=== PATIENT | male | born 1955 | race Caucasian/White ===

== ENCOUNTER 2016-04-21 16:04 | Inpatient (IN) | payer MEDICAID ==
[~2016-04-21] VITALS: Ht 182.9 cm; Wt 114.8 kg
[~2016-04-21 16:04] MED LIST: ASPI-556 PO; ATOR20TA86 PO; CITA10TA68 PO; FOLI1 PO; GABA-529 PO; METO25 PO; TRAZ-144 PO
[2016-04-21] MEDS ORDERED: ZOLPIDEM TARTRATE 10 MG TABLET PO PRN (19:00)
[2016-04-21] MEDS ORDERED: LORazepam 2 MG TABLET PO PRN (19:00)
[2016-04-21] MEDS ORDERED: HALOPERIDOL 5 MG TABLET PO PRN (19:00)
[2016-04-21] MEDS ORDERED: PNEUMOCOCCAL VACCINE POLYVALENT 0.5 ML VIAL [PPSV23] IM ONE (19:15)
[2016-04-21] MEDS ORDERED: TRAZ-147 PO (19:31)
[2016-04-21] MEDS ORDERED: CITA20TA9 PO (19:31)
[2016-04-21] MEDS: TraZODone HCL 100 MG TABLET PO SCH (21:20)
[2016-04-21 21:24] VITALS: BP 134/82
[2016-04-22 00:11] VITALS: BP 114/68
[2016-04-22] MEDS: TraMADol HCL 50 MG TABLET PO PRN ×2 (08:37→16:42)
[2016-04-22] MEDS: CITALOPRAM HYDROBROMIDE 20 MG TABLET PO SCH (08:37)
[2016-04-22 09:01] VITALS: BP 123/61
[2016-04-22] MEDS: CEPHALEXIN MONOHYDRATE 500 MG CAPSULE PO SCH ×3 (12:16→21:06)
[2016-04-22] MEDS: INDOMETHACIN 50 MG CAPSULE PO PRN (12:18)
[2016-04-22] MEDS ORDERED: PNEUMOCOCCAL VACCINE POLYVALENT 0.5 ML VIAL [PPSV23] IM ONE (12:45)
[2016-04-22 16:41] VITALS: BP 136/92
[2016-04-22] MEDS: METOPROLOL TARTRATE 25 MG TABLET PO SCH (16:42)
[2016-04-22 17:41] VITALS: BP 128/81
[2016-04-22] MEDS: TraZODone HCL 100 MG TABLET PO SCH (21:06)
[2016-04-23] VITALS (9 sets, daily range): BP systolic 120–167; BP diastolic 71–110
[2016-04-23] MEDS: TraMADol HCL 50 MG TABLET PO PRN ×3 (05:19→19:20)
[2016-04-23 06:57] LABS: BASOPHILS % (AUTO) 0.5 % (0.0-2.0); EOSINOPHILS % (AUTO) 2.5 % (1.0-6.0); HEMATOCRIT 40.6 % (41-53); HEMOGLOBIN 13.6 g/dL (13.5-17.5); LYMPHOCYTES # (AUTO) 1.4 K/uL (1.0-4.8); LYMPHOCYTES % (AUTO) 25.4 % (22.0-44.0); MEAN CORPUSCULAR HEMOGLOBIN 33.9 pg (26.0-34.0); MEAN CORPUSCULAR HGB CONC 33.5 G/dL (31.0-37.0); MEAN CORPUSCULAR VOLUME 101 fL (80-100); MONOCYTES # (AUTO) 0.8 K/uL (0.1-1.0); MONOCYTES % (AUTO) 14.5 % (2.0-9.0); NEUTROPHILS # (AUTO) 3.1 K/uL (1.8-7.7); NEUTROPHILS % (AUTO) 57.1 % (40.0-70.0); PLATELET COUNT (AUTO) 194 K/uL (150-450); RED BLOOD CELL COUNT(AUTO) 4.02 MIL/uL (4.50-5.90); WHITE BLOOD COUNT (AUTO) 5.4 K/uL (4.5-11.0)
[2016-04-23 07:26] LABS: ALANINE AMINOTRANSFERASE 41 U/L (12-78); ALBUMIN 3.7 g/dL (3.4-5.0); ANION GAP 10 mmol/L (8-16); ASPARTATE AMINOTRANSFERASE 29 U/L (15-37); BILIRUBIN,TOTAL 0.6 mg/dL (0.1-1.0); CALCIUM, TOTAL 8.8 mg/dL (8.8-10.5); CARBON DIOXIDE 29 mmol/L (22-29); CHLORIDE 101 mmol/L (98-107); GLOMERULAR FILTR. RATE CALC > 60 mL/min (>60); POTASSIUM 4.1 mmol/L (3.5-5.1); SODIUM SERUM 140 mmol/L (136-145); TOTAL PROTEIN, SERUM 8.3 g/dL (6.4-8.2); UREA NITROGEN, BLOOD 15 mg/dL (7-18)
[2016-04-23 07:35] LABS: URIC ACID 7.2 mg/dL (2.6-7.2)
[2016-04-23] MEDS: CEPHALEXIN MONOHYDRATE 500 MG CAPSULE PO SCH ×4 (08:27→20:16)
[2016-04-23] MEDS: ASPIRIN 81 MG EC TABLET PO SCH (08:28)
[2016-04-23] MEDS: CITALOPRAM HYDROBROMIDE 20 MG TABLET PO SCH (08:28)
[2016-04-23] MEDS: PANTOPRAZOLE SODIUM 40 MG DR TABLET PO SCH (08:29)
[2016-04-23] MEDS: METOPROLOL TARTRATE 25 MG TABLET PO SCH ×2 (08:29→16:05)
[2016-04-23] MEDS: INDOMETHACIN 50 MG CAPSULE PO PRN ×2 (08:34→16:05)
[2016-04-23 09:53] LABS: HEMOGLOBIN A1C 5.4 % (4.5-6.2)
[2016-04-23 10:46] LABS: RBC MORPHOLOGY COMMENT ABNORMAL RBC MORPH
[2016-04-23] MEDS: TraZODone HCL 100 MG TABLET PO SCH (20:16)
[2016-04-24 06:10] VITALS: BP 122/71
[2016-04-24] MEDS: TraMADol HCL 50 MG TABLET PO PRN ×3 (06:10→18:41)
[2016-04-24] MEDS: CEPHALEXIN MONOHYDRATE 500 MG CAPSULE PO SCH ×4 (08:05→20:18)
[2016-04-24] MEDS: PANTOPRAZOLE SODIUM 40 MG DR TABLET PO SCH (08:06)
[2016-04-24] MEDS: ASPIRIN 81 MG EC TABLET PO SCH (08:06)
[2016-04-24] MEDS: CITALOPRAM HYDROBROMIDE 20 MG TABLET PO SCH (08:06)
[2016-04-24] MEDS: METOPROLOL TARTRATE 25 MG TABLET PO SCH ×2 (08:07→16:06)
[2016-04-24] MEDS: INDOMETHACIN 50 MG CAPSULE PO PRN ×2 (08:07→16:07)
[2016-04-24 09:07] VITALS: BP 130/77
[2016-04-24 09:18] LABS: HEPATITIS Bs ANTIGEN SCREEN P Negative (Negative); HEPATITIS C AB SCREEN <0.1 s/co ratio (0.0-0.9)
[2016-04-24 13:30] VITALS: BP 120/80
[2016-04-24] MEDS ORDERED: CYANOCOBALAMIN 1,000 MCG/ML VIAL IM ONE (14:15)
[2016-04-24] MEDS: THIAMINE HCL 100 MG TABLET PO SCH (16:05)
[2016-04-24 16:08] VITALS: BP 129/80
[2016-04-24 18:42] VITALS: BP 125/75
[2016-04-24] MEDS: TraZODone HCL 100 MG TABLET PO SCH (20:18)
[2016-04-25] MEDS: TraMADol HCL 50 MG TABLET PO PRN ×3 (06:12→19:50)
[2016-04-25 08:07] VITALS: BP 129/76
[2016-04-25] MEDS: CITALOPRAM HYDROBROMIDE 20 MG TABLET PO SCH (08:45)
[2016-04-25] MEDS: CEPHALEXIN MONOHYDRATE 500 MG CAPSULE PO SCH ×4 (08:46→20:05)
[2016-04-25] MEDS: ASPIRIN 81 MG EC TABLET PO SCH (08:46)
[2016-04-25] MEDS: FOLIC ACID 1 MG TABLET PO SCH (08:46)
[2016-04-25] MEDS: THIAMINE HCL 100 MG TABLET PO SCH ×2 (08:47→15:53)
[2016-04-25] MEDS: METOPROLOL TARTRATE 25 MG TABLET PO SCH ×2 (08:47→15:53)
[2016-04-25] MEDS: MULTIVITAMINS WITH MINERALS, THERAPEUTIC TABLET PO SCH (08:47)
[2016-04-25] MEDS: PANTOPRAZOLE SODIUM 40 MG DR TABLET PO SCH (08:47)
[2016-04-25] MEDS: INDOMETHACIN 50 MG CAPSULE PO PRN ×2 (08:49→15:51)
[2016-04-25 16:05] VITALS: BP 135/69
[2016-04-25 16:43] VITALS: BP 131/87
[2016-04-25 19:51] VITALS: BP 129/76
[2016-04-25] MEDS: TraZODone HCL 100 MG TABLET PO SCH (20:05)
[2016-04-26] MEDS: TraMADol HCL 50 MG TABLET PO PRN ×3 (06:29→19:18)
[2016-04-26] MEDS: THIAMINE HCL 100 MG TABLET PO SCH ×2 (08:45→16:27)
[2016-04-26] MEDS: METOPROLOL TARTRATE 25 MG TABLET PO SCH ×2 (08:45→16:27)
[2016-04-26] MEDS: PANTOPRAZOLE SODIUM 40 MG DR TABLET PO SCH (08:45)
[2016-04-26] MEDS: CEPHALEXIN MONOHYDRATE 500 MG CAPSULE PO SCH ×4 (08:45→20:12)
[2016-04-26] MEDS: ASPIRIN 81 MG EC TABLET PO SCH (08:45)
[2016-04-26] MEDS: MULTIVITAMINS WITH MINERALS, THERAPEUTIC TABLET PO SCH (08:46)
[2016-04-26] MEDS: CITALOPRAM HYDROBROMIDE 20 MG TABLET PO SCH (08:46)
[2016-04-26] MEDS: FOLIC ACID 1 MG TABLET PO SCH (08:46)
[2016-04-26 09:27] VITALS: BP 145/101
[2016-04-26 16:02] VITALS: BP 145/84
[2016-04-26] MEDS: INDOMETHACIN 50 MG CAPSULE PO PRN (16:28)
[2016-04-26 16:29] VITALS: BP 139/78
[2016-04-26 19:20] VITALS: BP 129/78
[2016-04-26] MEDS: TraZODone HCL 100 MG TABLET PO SCH (20:12)
[2016-04-27] MEDS: TraMADol HCL 50 MG TABLET PO PRN ×2 (06:29→12:53)
[2016-04-27] MEDS: CITALOPRAM HYDROBROMIDE 20 MG TABLET PO SCH (09:18)
[2016-04-27] MEDS: CEPHALEXIN MONOHYDRATE 500 MG CAPSULE PO SCH ×4 (09:19→20:28)
[2016-04-27] MEDS: METOPROLOL TARTRATE 25 MG TABLET PO SCH ×2 (09:19→16:24)
[2016-04-27] MEDS: FOLIC ACID 1 MG TABLET PO SCH (09:19)
[2016-04-27] MEDS: ASPIRIN 81 MG EC TABLET PO SCH (09:19)
[2016-04-27] MEDS: PANTOPRAZOLE SODIUM 40 MG DR TABLET PO SCH (09:19)
[2016-04-27] MEDS: MULTIVITAMINS WITH MINERALS, THERAPEUTIC TABLET PO SCH (09:19)
[2016-04-27] MEDS: THIAMINE HCL 100 MG TABLET PO SCH ×2 (09:20→16:24)
[2016-04-27 09:21] VITALS: BP 128/92
[2016-04-27] MEDS: INDOMETHACIN 50 MG CAPSULE PO PRN (09:21)
[2016-04-27] MEDS: TraZODone HCL 100 MG TABLET PO SCH (20:29)
[2016-04-27 21:48] VITALS: BP 136/90
[2016-04-28 06:29] VITALS: BP 125/89
[2016-04-28] MEDS: TraMADol HCL 50 MG TABLET PO PRN ×3 (06:32→19:37)
[2016-04-28] MEDS: FOLIC ACID 1 MG TABLET PO SCH (09:17)
[2016-04-28] MEDS: PANTOPRAZOLE SODIUM 40 MG DR TABLET PO SCH (09:18)
[2016-04-28] MEDS: ASPIRIN 81 MG EC TABLET PO SCH (09:18)
[2016-04-28] MEDS: METOPROLOL TARTRATE 25 MG TABLET PO SCH ×2 (09:18→17:13)
[2016-04-28] MEDS: CITALOPRAM HYDROBROMIDE 20 MG TABLET PO SCH (09:18)
[2016-04-28] MEDS: MULTIVITAMINS WITH MINERALS, THERAPEUTIC TABLET PO SCH (09:18)
[2016-04-28] MEDS: THIAMINE HCL 100 MG TABLET PO SCH ×2 (09:18→17:13)
[2016-04-28] MEDS: INDOMETHACIN 50 MG CAPSULE PO PRN ×2 (09:19→17:14)
[2016-04-28 10:11] VITALS: BP 130/86
[2016-04-28 17:10] VITALS: BP 134/81
[2016-04-28 19:37] VITALS: BP 132/78
[2016-04-28] MEDS: TraZODone HCL 100 MG TABLET PO SCH (20:21)
[2016-04-29] MEDS: CITALOPRAM HYDROBROMIDE 20 MG TABLET PO SCH (08:16)
[2016-04-29 08:17] VITALS: BP 133/81
[2016-04-29] MEDS: PANTOPRAZOLE SODIUM 40 MG DR TABLET PO SCH (08:17)
[2016-04-29] MEDS: THIAMINE HCL 100 MG TABLET PO SCH (08:17)
[2016-04-29] MEDS: METOPROLOL TARTRATE 25 MG TABLET PO SCH (08:17)
[2016-04-29] MEDS: ASPIRIN 81 MG EC TABLET PO SCH (08:17)
[2016-04-29] MEDS: FOLIC ACID 1 MG TABLET PO SCH (08:17)
[2016-04-29] MEDS: TraMADol HCL 50 MG TABLET PO PRN (08:17)
[2016-04-29] MEDS: MULTIVITAMINS WITH MINERALS, THERAPEUTIC TABLET PO SCH (08:17)
[2016-04-29] MEDS ORDERED: METO25 PO (10:29)
[2016-04-29] MEDS ORDERED: MV-M1TAB2 PO (10:29)
[2016-04-29] MEDS ORDERED: PANT40TA25 PO (10:30)
[2016-04-29] MEDS ORDERED: THIA100 PO (10:30)
[2016-04-29] MEDS ORDERED: MUPI1OIN4 NS (10:33)
[2016-04-29] MEDS ORDERED: MUPIROCIN CALCIUM 2% 22 GM OINTMENT NASAL SCH (11:00)
== END 2016-04-29 12:20 | disposition home or self-care (01) | DRG 751 ==
LOC: B2S 19:01 → 3EI 04-22 14:36
PROC: 3E0234Z Introduction of Serum, Toxoid and Vaccine into Muscle, Percutaneous Approach (ICD-10-PCS; principal; 2016-04-22)
DX: F33.2 Major depressive disorder, recurrent severe without psychotic features (principal); R45.851 Suicidal ideations; I82.509 Chronic embolism and thrombosis of unspecified deep veins of unspecified lower extremity; E78.5 Hyperlipidemia, unspecified; I10 Essential (primary) hypertension; I25.10 Atherosclerotic heart disease of native coronary artery without angina pectoris; G47.00 Insomnia, unspecified; F41.9 Anxiety disorder, unspecified; M79.89 Other specified soft tissue disorders; Z59.0 Homelessness; Z82.49 Family history of ischemic heart disease and other diseases of the circulatory system; Z91.5 Personal history of self-harm; Z91.81 History of falling; Z72.89 Other problems related to lifestyle; Z71.41 Alcohol abuse counseling and surveillance of alcoholic; Z95.5 Presence of coronary angioplasty implant and graft; Z98.890 Other specified postprocedural states; Z82.0 Family history of epilepsy and other diseases of the nervous system; Z79.82 Long term (current) use of aspirin; Z79.899 Other long term (current) drug therapy; Z23 Encounter for immunization
CPT/HCPCS: 80074; 82306; 82607; 82746; 83036; 83735; 84439; 84443; 84550; 85379; 86592; 87081; 90471; 93971; J3420

== ENCOUNTER 2016-05-30 09:38 | Emergency (ER) | payer MEDICAID, OTHER ==
[~2016-05-30] VITALS: Ht 180.3 cm; Wt 104.5 kg
[~2016-05-30 09:38] MED LIST changes: -ATOR20TA86 PO; -CITA10TA68 PO; +CITA20TA9 PO; -GABA-529 PO; +MUPI1OIN4 NS; +MV-M1TAB2 PO; +PANT40TA25 PO; +THIA100 PO; -TRAZ-144 PO; +TRAZ-147 PO
[2016-05-30] MEDS ORDERED: ATOR20TA86 PO (09:57)
[2016-05-30] MEDS ORDERED: IBUP-2070 PO (09:57)
[2016-05-30] MEDS ORDERED: PRAZ1 PO (09:57)
[2016-05-30] MEDS ORDERED: HYD25 PO (09:57)
[2016-05-30] MEDS ORDERED: METO50 PO (11:25)
[2016-05-30] MEDS ORDERED: MORPHINE SULFATE 4 MG/ML SYRINGE IVP ONE (11:30)
[2016-05-30 11:56] LABS: BASOPHILS % (AUTO) 0.2 % (0.0-2.0); EOSINOPHILS % (AUTO) 0.4 % (1.0-6.0); HEMATOCRIT 38.2 % (41-53); HEMOGLOBIN 12.7 g/dL (13.5-17.5); LYMPHOCYTES # (AUTO) 1.2 K/uL (1.0-4.8); LYMPHOCYTES % (AUTO) 14.3 % (22.0-44.0); MEAN CORPUSCULAR HEMOGLOBIN 32.8 pg (26.0-34.0); MEAN CORPUSCULAR HGB CONC 33.3 G/dL (31.0-37.0); MEAN CORPUSCULAR VOLUME 98 fL (80-100); MONOCYTES # (AUTO) 0.5 K/uL (0.1-1.0); MONOCYTES % (AUTO) 6.1 % (2.0-9.0); NEUTROPHILS # (AUTO) 6.8 K/uL (1.8-7.7); PLATELET COUNT (AUTO) 108 K/uL (150-450); RED BLOOD CELL COUNT(AUTO) 3.88 MIL/uL (4.50-5.90); RED CELL DISTRIBUTION WIDTH 14.2 % (11.5-14.5); WHITE BLOOD COUNT (AUTO) 8.6 K/uL (4.5-11.0)
[2016-05-30] MEDS ORDERED: MORPHINE SULFATE 4 MG/ML SYRINGE IM ONE (12:00)
[2016-05-30 12:06] LABS: ANION GAP 9 mmol/L (8-16); CALCIUM, TOTAL 8.7 mg/dL (8.8-10.5); CARBON DIOXIDE 30 mmol/L (22-29); CHLORIDE 103 mmol/L (98-107); CREATININE 0.94 mg/dL (0.60-1.30); GLOMERULAR FILTR. RATE CALC > 60 mL/min (>60); SODIUM SERUM 142 mmol/L (136-145); UREA NITROGEN, BLOOD 10 mg/dL (7-18)
[2016-05-30 12:12] LABS: ALANINE AMINOTRANSFERASE 62 U/L (12-78); ALBUMIN 3.8 g/dL (3.4-5.0); ASPARTATE AMINOTRANSFERASE 28 U/L (15-37); BILIRUBIN,TOTAL 0.6 mg/dL (0.1-1.0); TOTAL PROTEIN, SERUM 7.3 g/dL (6.4-8.2)
[2016-05-30 14:24] VITALS: BP 124/71
[2016-05-30] MEDS ORDERED: CefTRIAXone SODIUM 1 GM/VIAL IM ONE (14:30)
[2016-05-30] MEDS ORDERED: HYDROCODONE/ACETAMINOPHEN 5-325 MG TABLET PO ONE (14:30)
[2016-05-30] MEDS ORDERED: LIDOCAINE HCL/PF 1% 2 ML VIAL IM ONE (14:30)
== END 2016-05-30 15:28 | disposition home or self-care (01) ==
LOC: EMS 09:40
DX: L03.114 Cellulitis of left upper limb (principal); E11.9 Type 2 diabetes mellitus without complications; E78.00 Pure hypercholesterolemia, unspecified; I10 Essential (primary) hypertension
CPT/HCPCS: 36415; 73130; 80053; 85025; 87040; 93971; 96372; 99285; J0696; J2270; J3490